=== PATIENT | male | born 1990 | race Caucasian/White ===

== ENCOUNTER 2017-11-27 01:03 | Emergency (ER) | payer SELFPAY ==
[~2017-11-27] VITALS: Ht 182.9 cm; Wt 77.1 kg
[~2017-11-27 01:03] MED LIST: CLIN300C3 PO; HYDR-34 PO; HYDR1TAB PO; NAPR-243 PO; TRM50T PO
[2017-11-27 01:10] VITALS: BP 178/121
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
[2017-11-27 03:01] LABS: BASOPHILS % (AUTO) 0 % (0-10); EOSINOPHILS # (AUTO) 0.1 10^3/uL (0.0-0.3); EOSINOPHILS % (AUTO) 1 % (0-10); HEMATOCRIT 45 % (40-54); HEMOGLOBIN 16.2 G/DL (13.3-17.7); LYMPHOCYTES # (AUTO) 2.1 X 10^3 (1.0-4.0); LYMPHOCYTES % (AUTO) 23 % (12-44); MEAN CORPUSCULAR HEMOGLOBIN 34 PG (25-34); MEAN CORPUSCULAR HGB CONC 36 G/DL (32-36); MEAN CORPUSCULAR VOLUME 94 FL (80-99); MEAN PLATELET VOLUME 10.1 FL (7.4-10.4); MONOCYTES # (AUTO) 0.6 X 10^3 (0.0-1.0); MONOCYTES % (AUTO) 6 % (0-12); NEUTROPHILS # (AUTO) 6.5 X 10^3 (1.8-7.8); NEUTROPHILS % (AUTO) 70 % (42-75); PLATELET COUNT 240 10^3/uL (130-400); RED BLOOD COUNT 4.77 10^6/uL (4.35-5.85); RED CELL DISTRIBUTION WIDTH 12.4 % (10.0-14.5); WHITE BLOOD COUNT 9.3 10^3/uL (4.3-11.0)
[2017-11-27 03:23] LABS: ALANINE AMINOTRANSFERASE 22 U/L (0-55); ALBUMIN 4.7 GM/DL (3.2-4.5); ALKALINE PHOSPHATASE 77 U/L (40-136); BILIRUBIN,TOTAL 0.5 MG/DL (0.1-1.0); BUN/CREATININE RATIO 10; CALCIUM 9.3 MG/DL (8.5-10.1); CARBON DIOXIDE 24 MMOL/L (21-32); CHLORIDE 106 MMOL/L (98-107); CREATININE SERUM 0.84 MG/DL (0.60-1.30); GFR ESTIMATED > 60; GLUCOSE 111 MG/DL (70-105); MAGNESIUM 2.5 MG/DL (1.8-2.4); POTASSIUM 4.1 MMOL/L (3.6-5.0); SODIUM 140 MMOL/L (135-145); TOTAL PROTEIN 7.6 GM/DL (6.4-8.2)
[2017-11-27] MEDS ORDERED: PRD20T PO (04:14)
--- NOTE | 2017-11-27 07:16 | Diagnostic Imaging Report ---
INDICATION: Chest pain. COMPARISON: 01/24/2010. TECHNIQUE: Single radiograph dated 11/27/2017. FINDINGS: The cardiac silhouette is within normal limits. No significant pulmonary vascular congestion. The lungs are clear. No pleural effusion. No pneumothorax. No acute osseous abnormality. IMPRESSION: No acute cardiopulmonary abnormality. Dictated by: Dictated on workstation # [id number]
== END 2017-11-27 04:20 | disposition home or self-care (01) ==
LOC: EDUNIT# 01:03 → ER 01:07
DX: M94.0 Chondrocostal junction syndrome [Tietze] (principal); F10.20 Alcohol dependence, uncomplicated; F12.90 Cannabis use, unspecified, uncomplicated; F17.210 Nicotine dependence, cigarettes, uncomplicated
CPT/HCPCS: 36415; 71046; 80053; 80320; 83735; 84484; 85025; 86141; 93005

== ENCOUNTER 2021-03-02 16:28 | Emergency (ER) | payer SELFPAY ==
[~2021-03-02] VITALS: Ht 185.4 cm; Wt 76.0 kg
[~2021-03-02 16:28] MED LIST changes: +PRD20T PO
--- NOTE | 2021-03-02 16:51 | ED Cardiac General ---
History of Present Illness General Chief Complaint: Cardiac/General Problems Stated Complaint: HEART RACING/IRREGULAR HR Source: patient Exam Limitations: no limitations History of Present Illness Date Seen by Provider: Mar 02, 2021 Time Seen by Provider: 16:50 Initial Comments This is a 30-year-old male presents to the ER via POV with complaints of intermittent chest pain, palpitations, shortness of breath over the past few weeks. States that he has these intermittent palpitations however today they began to become more frequent which made him nervous so he presented to the ER. Upon arrival he is extremely anxious, sweating, hyperventilating. States pain is in his left chest, describes as squeezing sensation, rating 3/10, constant. States he does have a history of hypertension but he is not currently treated with medications. Allergies and Home Medications Allergies Coded Allergies: No Known Drug Allergies (Unverified , 01/24/10) Home Medications Clindamycin Hcl 300 Mg Capsule, 1 EACH PO QID FOR INFECTION Prescribed by: FRANCISCO HERNANDEZ on 10/24/11 0737 Hydrocodone Bit/Acetaminophen 1 Ea Tablet, 1 TAB PO Q4H PRN Prescribed by: JYOTHI LESLIE on 06/17/10 185 Hydrocodone Bit/Acetaminophen 1 Each Tablet, 1-2 EACH PO Q4HR PRN Prescribed by: JYOTHI LESLIE on 04/07/11 190 Hydroxyzine Pamoate 50 Mg Capsule, 50 MG PO DAILY PRN for ANXIETY Prescribed by: SHANNAN BURNS on 03/02/212046 Metoprolol Tartrate 25 Mg Tablet, 25 MG PO BID Prescribed by: SHANNAN BURNS on 03/02/212046 Naproxen 500 Mg Tablet, 1 EACH PO TID PRN FOR PAIN Prescribed by: FRANCISCO HERNANDEZ on 10/24/1137 Prednisone 20 Mg Tab, 40 MG PO DAILY Prescribed by: NELLI JETER on 11/27/17 0414 Tramadol Hcl 50 Mg Tab, 50 MG PO Q4-6HOURS PRN FOR PAIN Prescribed by: FRANCISCO HERNANDEZ on 10/24/11 0737 Past Rxjjyka-Zpeeag-Fmpkbh Hx Patient Social History Alcohol Beverage of Choice: Beer, Whiskey Drug of Choice: MARIJUANA Type Used: Cigarettes 2nd Hand Smoke Exposure: Yes Recent Hopitalizations: No Past Medical History Surgeries: Yes (fasciotomy left thigh following football accident, ACL repair) Orthopedic Respiratory: No Cardiac: No Neurological: No Reproductive Disorders: No Sexually Transmitted Disease: No HIV/AIDS: No Gastrointestinal: No Musculoskeletal: No Endocrine: No Cancer: No Psychosocial: No Integumentary: No Blood Disorders: No Adverse Reaction/Blood Tranf: No Physical Exam Vital Signs Vital Signs - First Documented 03/02/21 16:34 Temp 36.4 Pulse 112 Resp 20 B/P (MAP) 188/154 (165) Pulse Ox 95 O2 Delivery Room Air Capillary Refill : Height, Weight, BMI Height: 6'0" Weight: 170lbs. oz. 77.902654xp; 23.09 BMI Method:Stated Progress/Results/Core Measures Results/Orders Lab Results Laboratory Tests Test 03/02/21 16:45 03/02/21 17:52 03/02/21 19:45 Range/Units White Blood Count 7.7 4.3-11.0 10^3/uL Red Blood Count 5.14 4.30-5.52 10^6/uL Hemoglobin 17.1 13.3-17.7 g/dL Hematocrit 48 40-54 % Mean Corpuscular Volume 93 80-99 fL Mean Corpuscular Hemoglobin 33 25-34 pg Mean Corpuscular Hemoglobin Concent 36 32-36 g/dL Red Cell Distribution Width 12.4 10.0-14.5 % Platelet Count 309 130-400 10^3/uL Mean Platelet Volume 10.5 9.0-12.2 fL Immature Granulocyte % (Auto) 0 % Neutrophils (%) (Auto) 60 42-75 % Lymphocytes (%) (Auto) 28 12-44 % Monocytes (%) (Auto) 11 0-12 % Eosinophils (%) (Auto) 0 0-10 % Basophils (%) (Auto) 1 0-10 % Neutrophils # (Auto) 4.6 1.8-7.8 10^3/uL Lymphocytes # (Auto) 2.2 1.0-4.0 10^3/uL Monocytes # (Auto) 0.9 0.0-1.0 10^3/uL Eosinophils # (Auto) 0.0 0.0-0.3 10^3/uL Basophils # (Auto) 0.0 0.0-0.1 10^3/uL Immature Granulocyte # (Auto) 0.0 0.0-0.1 10^3/uL Sodium Level 138 135-145 MMOL/L Potassium Level 3.5 L 3.6-5.0 MMOL/L Chloride Level 97 L 98-107 MMOL/L Carbon Dioxide Level 21 21-32 MMOL/L Anion Gap 20 H 5-14 MMOL/L Blood Urea Nitrogen 15 7-18 MG/DL Creatinine 1.12 0.60-1.30 MG/DL Estimat Glomerular Filtration Rate > 60 BUN/Creatinine Ratio 13 Glucose Level 105 70-105 MG/DL Calcium Level 9.9 8.5-10.1 MG/DL Corrected Calcium 9.5 8.5-10.1 MG/DL Magnesium Level 1.8 1.6-2.4 MG/DL Total Bilirubin 0.9 0.1-1.0 MG/DL Aspartate Amino Transf (AST/SGOT) 47 H 5-34 U/L Alanine Aminotransferase (ALT/SGPT) 34 0-55 U/L Alkaline Phosphatase 78 40-136 U/L Creatine Kinase MB 1.1 <6.6 NG/ML Myoglobin 72.4 10.0-92.0 NG/ML Troponin I < 0.028 < 0.028 <0.028 NG/ML Total Protein 8.0 6.4-8.2 GM/DL Albumin 4.5 3.2-4.5 GM/DL Serum Alcohol 22 H <10 MG/DL Urine Opiates Screen POSITIVE H NEGATIVE Urine Oxycodone Screen NEGATIVE NEGATIVE Urine Methadone Screen NEGATIVE NEGATIVE Urine Propoxyphene Screen NEGATIVE NEGATIVE Urine Barbiturates Screen NEGATIVE NEGATIVE Ur Tricyclic Antidepressants Screen NEGATIVE NEGATIVE Urine Phencyclidine Screen NEGATIVE NEGATIVE Urine Amphetamines Screen NEGATIVE NEGATIVE Urine Methamphetamines Screen NEGATIVE NEGATIVE Urine Benzodiazepines Screen NEGATIVE NEGATIVE Urine Cocaine Screen NEGATIVE NEGATIVE Urine Cannabinoids Screen POSITIVE H NEGATIVE Prothrombin Time 13.9 12.2-14.7 SEC INR Comment 1.0 0.8-1.4 Activated Partial Thromboplast Time 25 24-35 SEC D-Dimer < 0.27 0.00-0.49 UG/ML My Orders Orders - SHANNAN BURNS APRN Ekg Tracing (03/02/21 16:34) Cbc With Automated Diff (03/02/21 17:02) Magnesium (03/02/21 17:02) Chest 1 View, Ap/Pa Only (03/02/21 17:02) Comprehensive Metabolic Panel (03/02/21 17:02) Myoglobin Serum (03/02/21 17:02) Protime With Inr (03/02/21 17:02) Partial Thromboplastin Time (03/02/21 17:02) O2 (03/02/21 17:02) Monitor-Rhythm Ecg Trace Only (03/02/21 17:02) Ed Iv/Invasive Line Start (03/02/21 17:02) Creatine Kinase Mb (03/02/21 17:02) Fibrin Degradation Products (03/02/21 17:02) Troponin I (03/02/21 17:02) Nitroglycerin 0.4 Mg Btl 25's (Nitrostat (03/02/21 17:15) Aspirin Chewable Tablet (Baby Aspirin Ch (03/02/21 17:15) O2 (03/02/21 17:02) Lipid Panel (03/03/21 06:00) Ed Iv/Invasive Line Start (03/02/21 17:02) Morphine Injection (Morphine Injection (03/02/21 17:04) Alcohol (03/02/21 17:05) Drug Screen Stat (Urine) (03/02/21 17:05) Lorazepam Injection (Ativan Injection) (03/02/21 17:30) Lorazepam Injection (Ativan Injection) (03/02/21 17:45) Metoprolol Tartrate Injection (Lopressor (03/02/21 18:00) Ns Iv 1000 Ml (Sodium Chloride 0.9%) (03/02/21 18:30) Troponin I (03/02/21 19:45) Hydralazine Injection (Apresoline Inject (03/02/21 19:45) Medications Given in ED Current Medications Medications Dose Ordered Sig/Nevaeh Route Start Time Stop Time Status Last Admin Dose Admin Aspirin 324 mg ONCE ONCE PO 03/02/21 17:15 03/02/21 17:16 DC 03/02/21 17:12 324 MG Hydralazine HCl 10 mg ONCE ONCE IV 03/02/21 19:45 03/02/21 19:46 DC 03/02/21 19:38 10 MG Lorazepam 1 mg ONCE ONCE IVP 03/02/21 17:30 03/02/21 17:31 DC 03/02/21 17:22 1 MG Lorazepam 1 mg ONCE ONCE IVP 03/02/21 17:45 03/02/21 17:46 DC 03/02/21 17:44 1 MG Metoprolol Tartrate 5 mg ONCE ONCE IV 03/02/21 18:00 03/02/21 18:02 DC 03/02/21 18:19 5 MG Nitroglycerin 0.4 mg UD PRN SL 03/02/21 17:15 03/02/21 17:12 0.4 MG Sodium Chloride 1,000 ml @ 999 mls/hr Q1H ONCE IV 03/02/21 18:30 03/02/21 19:30 DC 03/02/21 18:41 999 MLS/HR Vital Signs/I&O 03/02/21 03/02/21 16:34 19:06 Temp 36.4 Pulse 112 Resp 20 B/P (MAP) 188/154 (165) Pulse Ox 95 99 O2 Delivery Room Air Room Air Departure Impression Primary Impression: Panic attack Additional Impression: Hypertension Disposition: 01 HOME, SELF-CARE Condition: Improved Departure-Patient Inst. Decision time for Depature: 20:47 Referrals: NO,LOCAL PHYSICIAN (PCP/Family) Primary Care Physician Patient Instructions: High Blood Pressure (DC), Panic Disorder Add. Discharge Instructions: Plan: 1. Establish with a primary care provider to follow your blood pressure. 2. Take Metoprolol 25mg by mouth twice a day for your blood pressure. 3. Take Hydroxyzine daily as needed for anxiety. 4. Return to ER if you develop any new, concerning, or worsening symptoms. All discharge instructions reviewed with patient and/or family. Voiced understanding. Scripts Hydroxyzine Pamoate (Vistaril) 50 Mg Capsule 50 MG PO DAILY PRN for ANXIETY, #30 CAP 0 Refills Prov: SHANNAN BURNS ARMORED CABLE MACHINE OPERATOR 03/02/21 Metoprolol Tartrate (Metoprolol Tartrate) 25 Mg Tablet 25 MG PO BID for 14 Days, #28 TAB 0 Refills Prov: SHANNAN BURNS ARMORED CABLE MACHINE OPERATOR 03/02/21 Copy Copies To 1: [facility]/SHANNAN GEORGE ARMORED CABLE MACHINE OPERATOR Mar 02, 2021 16:50
[2021-03-02] MEDS ORDERED: morphine INJ 10 MG/ML 1ML (SYR OR VIAL) IVP STA (17:04)
[2021-03-02] MEDS ORDERED: ASPIRIN 81 MG CHEW (CHILDREN'S ASA) PO ONE (17:15)
[2021-03-02] MEDS ORDERED: NITROGLYCERIN 0.4 MG SL TABS BTL 25'S SL PRN (17:15)
[2021-03-02 17:25] LABS: BASOPHILS % (AUTO) 1 % (0-10); EOSINOPHILS % (AUTO) 0 % (0-10); HEMATOCRIT 48 % (40-54); HEMOGLOBIN 17.1 g/dL (13.3-17.7); LYMPHOCYTES # (AUTO) 2.2 10^3/uL (1.0-4.0); LYMPHOCYTES % (AUTO) 28 % (12-44); MEAN CORPUSCULAR HEMOGLOBIN 33 pg (25-34); MEAN CORPUSCULAR HGB CONC 36 g/dL (32-36); MEAN CORPUSCULAR VOLUME 93 fL (80-99); MEAN PLATELET VOLUME 10.5 fL (9.0-12.2); MONOCYTES # (AUTO) 0.9 10^3/uL (0.0-1.0); MONOCYTES % (AUTO) 11 % (0-12); NEUTROPHILS # (AUTO) 4.6 10^3/uL (1.8-7.8); NEUTROPHILS % (AUTO) 60 % (42-75); PLATELET COUNT 309 10^3/uL (130-400); WHITE BLOOD COUNT 7.7 10^3/uL (4.3-11.0)
[2021-03-02] MEDS ORDERED: LORazepam INJ 2 MG/ML (ATIVAN) VIAL IVP ONE ×3 (17:30→17:45)
[2021-03-02 17:37] LABS: ALBUMIN 4.5 GM/DL (3.2-4.5); CHLORIDE 97 MMOL/L (98-107); POTASSIUM 3.5 MMOL/L (3.6-5.0); SODIUM 138 MMOL/L (135-145)
[2021-03-02 17:38] LABS: CALCIUM 9.9 MG/DL (8.5-10.1)
[2021-03-02 17:39] LABS: GLUCOSE 105 MG/DL (70-105)
[2021-03-02 17:40] LABS: CARBON DIOXIDE 21 MMOL/L (21-32)
[2021-03-02 17:41] LABS: BILIRUBIN,TOTAL 0.9 MG/DL (0.1-1.0)
[2021-03-02 17:43] LABS: ALKALINE PHOSPHATASE 78 U/L (40-136); CREATININE SERUM 1.12 MG/DL (0.60-1.30); GFR ESTIMATED > 60
[2021-03-02 17:44] LABS: BUN/CREATININE RATIO 13
[2021-03-02 17:46] LABS: ALANINE AMINOTRANSFERASE 34 U/L (0-55); MAGNESIUM 1.8 MG/DL (1.6-2.4)
--- NOTE | 2021-03-02 17:49 | Diagnostic Imaging Report ---
INDICATION: Chest pain. COMPARISON STUDY: Chest from 11/27/2017. FINDINGS: AP view of the chest demonstrates the lungs to be clear. The heart, mediastinum, pulmonary vascularity and visualized bony thorax are normal. IMPRESSION: Negative chest. Dictated by: Dictated on workstation # [id number]
[2021-03-02 17:54] LABS: CREATINE KINASE MB 1.1 NG/ML (<6.6)
[2021-03-02] MEDS ORDERED: meTOprolol 5 MG/5 ML (LOPRESSOR) VIAL IV ONE (18:00)
[2021-03-02 18:12] LABS: AMPHETAMINE SCREEN, URINE NEGATIVE (NEGATIVE); BARBITURATE SCREEN URINE NEGATIVE (NEGATIVE); BENZODIAZEPINES SCREEN URINE NEGATIVE (NEGATIVE); CANNABINOID SCREEN, URINE POSITIVE (NEGATIVE); COCAINE SCREEN URINE NEGATIVE (NEGATIVE); METHADONE STAT NEGATIVE (NEGATIVE); METHAMPHETAMINE SCREEN URINE S NEGATIVE (NEGATIVE); OPIATE SCREEN URINE POSITIVE (NEGATIVE); OXYCODONE STAT NEGATIVE (NEGATIVE); PROPOXYPHENE STAT NEGATIVE (NEGATIVE); TRICYCLIC ANTIDEPRESSANTS SCRE NEGATIVE (NEGATIVE)
[2021-03-02] MEDS ORDERED: NS IV 1000 ML 1,000 ML IV ONE (18:30)
[2021-03-02] MEDS ORDERED: hydrALAZINE (APESOLINE) 20 MG/ML VIAL IV ONE (19:45)
[2021-03-02 20:29] LABS: PROTHROMBIN TIME PATIENT 13.9 SEC (12.2-14.7)
[2021-03-02] MEDS ORDERED: HYDR50CA PO (20:47)
[2021-03-02] MEDS ORDERED: METO-333 PO (20:47)
[2021-03-02] MEDS ORDERED: meTOprolol TARTRATE 25 MG (LOPRESSOR) TABLET PO ONE (21:00)
[2021-03-02 21:37] VITALS: BP 146/94
== END 2021-03-02 21:37 | disposition home or self-care (01) ==
LOC: EDUNIT# 16:28 → ER 16:29
DX: F41.0 Panic disorder [episodic paroxysmal anxiety] (principal); I10 Essential (primary) hypertension; Z77.22 Contact with and (suspected) exposure to environmental tobacco smoke (acute) (chronic); Z79.52 Long term (current) use of systemic steroids
CPT/HCPCS: 71045; 80053; 80306; 82553; 83735; 83874; 84484; 85025; 85379; 85610; 85730; 93041; G0480; 36415; 80320; 93005

== ENCOUNTER 2021-06-10 23:23 | Emergency (ER) | payer SELFPAY ==
[~2021-06-10] VITALS: Ht 185 cm; Wt 76.0 kg
[~2021-06-10 23:23] MED LIST changes: +HYDR50CA PO; +METO-333 PO
[2021-06-11] MEDS: AMOXICILLIN 500 MG (POLYMOX) CAP PO ONE (00:05)
[2021-06-11] MEDS: LIDOCAINE 1% INJ 20 ML 20 ML VIAL INJ ONE (01:30)
[2021-06-11 01:44] VITALS: BP 135/78
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
== END 2021-06-11 01:50 | disposition home or self-care (01) ==
LOC: EDUNIT# 23:23 → ER 23:24
DX: S01.511A Laceration without foreign body of lip, initial encounter (principal); F17.210 Nicotine dependence, cigarettes, uncomplicated; W22.8XXA Striking against or struck by other objects, initial encounter
CPT/HCPCS: 99284

== ENCOUNTER 2021-11-27 18:23 | Observation (INO) | payer SELFPAY ==
[~2021-11-27] VITALS: Ht 185 cm; Wt 77.0 kg
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
[2021-11-27] MEDS ORDERED: LACTATED RINGERS 1,000 ML IV STA (18:42)
[2021-11-27] MEDS ORDERED: FAMOTIDINE 20MG/2ML IV (PEPCID) IV STA (18:42)
[2021-11-27] MEDS ORDERED: PANTOPRAZOLE 40 MG (PROTONIX) VIAL IV ONE (18:45)
[2021-11-27 18:51] LABS: BASOPHILS # (AUTO) 0.1 10^3/uL (0.0-0.1); BASOPHILS % (AUTO) 0 % (0-10); EOSINOPHILS % (AUTO) 0 % (0-10); HEMATOCRIT 32 % (40-54); HEMOGLOBIN 10.7 g/dL (13.3-17.7); LYMPHOCYTES # (AUTO) 2.6 10^3/uL (1.0-4.0); LYMPHOCYTES % (AUTO) 14 % (12-44); MEAN CORPUSCULAR HEMOGLOBIN 33 pg (25-34); MEAN CORPUSCULAR HGB CONC 34 g/dL (32-36); MEAN CORPUSCULAR VOLUME 98 fL (80-99); MEAN PLATELET VOLUME 10.3 fL (9.0-12.2); MONOCYTES # (AUTO) 1.5 10^3/uL (0.0-1.0); MONOCYTES % (AUTO) 8 % (0-12); NEUTROPHILS # (AUTO) 13.9 10^3/uL (1.8-7.8); NEUTROPHILS % (AUTO) 76 % (42-75); PLATELET COUNT 295 10^3/uL (130-400); WHITE BLOOD COUNT 18.3 10^3/uL (4.3-11.0)
[2021-11-27 18:57] LABS: ALBUMIN 3.9 GM/DL (3.2-4.5); POTASSIUM 3.9 MMOL/L (3.6-5.0)
[2021-11-27 18:58] LABS: CALCIUM 9.5 MG/DL (8.5-10.1)
[2021-11-27 18:59] LABS: TOTAL PROTEIN 6.3 GM/DL (6.4-8.2)
[2021-11-27] MEDS ORDERED: ONDANSETRON 4 MG/2 ML (SDV) Z0FRAN IVP ONE (19:00)
[2021-11-27 19:01] LABS: BILIRUBIN,TOTAL 0.4 MG/DL (0.1-1.0)
[2021-11-27 19:03] LABS: CREATININE SERUM 1.07 MG/DL (0.60-1.30)
[2021-11-27 19:06] LABS: MAGNESIUM 1.6 MG/DL (1.6-2.4)
[2021-11-27 19:14] LABS: LYMPHOCYTES % (MANUAL) 13 %; MONOCYTES % (MANUAL) 5 %; NEUTROPHILS % (MANUAL) 82 %; RBC MORPH NORMAL
[2021-11-27] MEDS ORDERED: SUCRALFATE 1 GM (CARAFATE) TAB PO ONE (19:30)
[2021-11-27] MEDS ORDERED: PANTOPRAZOLE INJECTION 200 MG in NS (IVPB) 100 ML IV SCH (20:30)
[2021-11-27 21:20] VITALS: BP 136/87
[2021-11-27] MEDS ORDERED: 1/2 NS IV SOLUTION 1,000 ML IV PRN (22:45)
[2021-11-27] MEDS ORDERED: D5 1/2 NS 1000 ML IV SOLUTION 1,000 ML IV PRN (22:45)
[2021-11-27] MEDS ORDERED: SENNA W/DOCUSATE (SENOKOT S) TABLET PO PRN (22:45)
[2021-11-27] MEDS ORDERED: ONDANSETRON 4 MG/2 ML (SDV) Z0FRAN IV PRN (22:45)
[2021-11-27] MEDS ORDERED: LORazepam INJ 2 MG/ML (ATIVAN) VIAL IM/IV PRN (22:45)
[2021-11-27] MEDS ORDERED: LORazepam 1 MG (ATIVAN) TAB PO PRN (22:45)
[2021-11-27] MEDS ORDERED: ANTACID SUSP 30 ML UDC (MYLANTA) PO PRN (22:45)
[2021-11-27] MEDS ORDERED: D5 1/2 NS W/KCL 20 MEQ/L 1,000 ML IV SCH (22:45)
[2021-11-27] MEDS ORDERED: ONDANSETRON 4 MG (ZOFRAN) ORAL DISSOLVE TAB SL PRN (22:45)
[2021-11-27 23:17] LABS: HEMOGLOBIN 9.1 g/dL (13.3-17.7)
[2021-11-27] MEDS ORDERED: LACTATED RINGERS 1,000 ML IV ONE (23:28)
[2021-11-27] MEDS: LACTATED RINGERS 1,000 ML IV SCH (23:55)
[2021-11-28] VITALS (9 sets, daily range): BP systolic 111–142; BP diastolic 56–91
[2021-11-28] MEDS: LORazepam INJ 2 MG/ML (ATIVAN) VIAL IV PRN ×2 (00:06→17:24)
[2021-11-28 05:49] LABS: BASOPHILS % (AUTO) 0 % (0-10); EOSINOPHILS # (AUTO) 0.1 10^3/uL (0.0-0.3); EOSINOPHILS % (AUTO) 1 % (0-10); HEMATOCRIT 22 % (40-54); HEMOGLOBIN 7.4 g/dL (13.3-17.7); LYMPHOCYTES % (AUTO) 27 % (12-44); MEAN CORPUSCULAR HEMOGLOBIN 34 pg (25-34); MEAN CORPUSCULAR HGB CONC 34 g/dL (32-36); MEAN CORPUSCULAR VOLUME 100 fL (80-99); MEAN PLATELET VOLUME 10.4 fL (9.0-12.2); MONOCYTES # (AUTO) 0.8 10^3/uL (0.0-1.0); MONOCYTES % (AUTO) 10 % (0-12); NEUTROPHILS # (AUTO) 4.7 10^3/uL (1.8-7.8); NEUTROPHILS % (AUTO) 61 % (42-75); PLATELET COUNT 169 10^3/uL (130-400); WHITE BLOOD COUNT 7.6 10^3/uL (4.3-11.0)
[2021-11-28 06:06] LABS: CALCIUM 8.5 MG/DL (8.5-10.1)
[2021-11-28 06:10] LABS: CREATININE SERUM 0.74 MG/DL (0.60-1.30)
[2021-11-28] MEDS: LACTATED RINGERS 1,000 ML IV SCH (06:44)
--- NOTE | 2021-11-28 07:54 | History & Physical-Surgical ---
ANAKRYSTALTAYLOR 11/28/21 0754: History of Present Illness History of Present Illness Reason for visit/HPI Luis Carlos Yung is a 31y/o M w/ a PMH of HTN, smoking, and alcohol use who is being seen due to upper GI bleed. Pt reports that 2 days ago he awoke with nausea and vomiting in the morning. States that the vomit at that time had bright red blood in it. That was the only episode of vomiting that day. Yesterday morning he woke up with epigastric and RUQ pain that was sharp and radiated to his chest. Reports that he had 2 episodes of vomiting w/ coffee ground appearance and 2 episodes of melena.It was due to the appearance of his vomit and stools that he decided to go into the ER yesterday. Today her reports that the pain is in the same areas as yesterday but is maybe slightly improved. Rates the pain as 6/10 and describes it as steady. Does radiate to right side of abdomen. Complaining of nausea but not having any vomiting. No recent BM. Says that he felt like he was having palpitations last night but they resolved after he was given ativan. Reports that he drinks about 4-5 beers every night. Date of Admission Nov 27, 2021 at 20:31 Date Seen by a Provider: Nov 28, 2021 Time Seen by a Provider: 07:14 I consulted on this patient on 11/28/21 07:48 Attending Physician Aleida Bah DO Admitting Physician No,Local Physician Consult Allergies and Home Medications Allergies Coded Allergies: No Known Drug Allergies (Unverified , 01/24/10) Patient Home Medication List Home Medication List Reviewed: Yes Past Hufzlqi-Wbuqnp-Jpddza Hx Patient Social History Tobacco Use?: Yes Tobacco type used: Cigarettes Smoking Status: Current Everyday Smoker Smokeless Tobacco Frequency: Never a User Use of E-Cig and/or Vaping dev: No Use of E-Cig and/or Vaping River: Never a User Substance use?: No Substance type: Marijuana Substance frequency: Once in a while Alcohol Use?: Yes Alcohol type: Beer Alcohol Frequency: Couple times a week Pt feels they are or have been: No Immunizations Up To Date Tetanus Booster (TDap): Less Than 5 Years Seasonal Allergies Seasonal Allergies: No Current Status Advance Directives: No Communicates: Verbally Primary Language: Montserratian Preferred Spoken Language: [place]serratian Is interpretation needed?: No Implanted or Applied Medical D: None Past Medical History Surgeries: Orthopedic Sexually Transmitted Disease: No HIV/AIDS: No Blood Disorders: No Adverse Reaction/Blood Tranf: No Family Medical History Reviewed Nursing Family Hx No Pertinent Family Hx Review of Systems Constitutional: No chills, No fever EENTM: No blurred vision, No double vision, No eye pain Respiratory: No cough, No dyspnea on exertion Cardiovascular: chest pain, palpitations Gastrointestinal: abdominal pain, nausea; No vomiting Musculoskeletal: No muscle pain, No muscle stiffness; muscle weakness Skin: No change in color, No change in hair/nails Psychiatric/Neurological: Denies Headache, Denies Numbness, Denies Paresthesia Physical Exam Vital Signs Vital Signs - First Documented 11/27/21 11/27/21 18:26 21:09 Temp 36.6 Pulse 137 Resp 22 B/P (MAP) 145/73 (97) Pulse Ox 99 O2 Delivery Room Air Capillary Refill : Less Than 3 Seconds Height, Weight, BMI Height: 6'0" Weight: 170lbs. oz. [id number]; 22.49 BMI Method:Stated General Appearance: No Apparent Distress, WD/WN HEENT: PERRL/EOMI; No Photophobia Neck: Non Tender, Supple Respiratory: Lungs Clear, Normal Breath Sounds, No Accessory Muscle Use, No Respiratory Distress, Other (chest tender to palpitation, probable costochondritis ) Cardiovascular: No Murmur, Normal Peripheral Pulses, Tachycardia Gastrointestinal: Soft, Tenderness (epigastric region and RLQ) Back: No CVA Tenderness, No Vertebral Tenderness Extremity: Normal Capillary Refill, Normal Inspection, Non Tender, No Calf Tenderness, No Pedal Edema Neurologic/Psychiatric: Alert, Oriented x3, Normal Mood/Affect Skin: Normal Color, Warm/Dry, Tattoos/Piercings Lymphatic: No Adenopathy Data Review Labs Laboratory Tests 11/27/21 18:40: White Blood Count 18.3H, Red Blood Count 3.21L, Hemoglobin 10.7L, Hematocrit 32L , Mean Corpuscular Volume 98, Mean Corpuscular Hemoglobin 33, Mean Corpuscular Hemoglobin Concent 34, Red Cell Distribution Width 14.2, Platelet Count 295, Mean Platelet Volume 10.3, Immature Granulocyte % (Auto) 1, Neutrophils (%) (Auto) 76H, Lymphocytes (%) (Auto) 14, Monocytes (%) (Auto) 8, Eosinophils (%) (Auto) 0, Basophils (%) (Auto) 0, Neutrophils # (Auto) 13.9H, Lymphocytes # (Auto) 2.6, Monocytes # (Auto) 1.5H, Eosinophils # (Auto) 0.0, Basophils # (Auto) 0.1, Immature Granulocyte # (Auto) 0.2H, Neutrophils % (Manual) 82, Lymphocytes % (Manual) 13, Monocytes % (Manual) 5, Blood Morphology Comment NORMAL, Sodium Level 137, Potassium Level 3.9, Chloride Level 103, Carbon Dioxide Level 20L, Anion Gap 14, Blood Urea Nitrogen 35H, Creatinine 1.07, Estimat Glomerular Filtration Rate 95, BUN/Creatinine Ratio 33, Glucose Level 124H, Calcium Level 9.5, Corrected Calcium 9.6, Magnesium Level 1.6, Total Bilirubin 0.4, Aspartate Amino Transf (AST/SGOT) 20, Alanine Aminotransferase (ALT/SGPT) 18, Alkaline Phosphatase 53, Total Protein 6.3L, Albumin 3.9, Lipase 37, Serum Alcohol 30H 11/27/21 23:05: Hemoglobin 9.1L, Hematocrit 27L 11/28/21 05:37: White Blood Count 7.6, Red Blood Count 2.21L, Hemoglobin 7.4L, Hematocrit 22L, Mean Corpuscular Volume 100H, Mean Corpuscular Hemoglobin 34, Mean Corpuscular Hemoglobin Concent 34, Red Cell Distribution Width 14.5, Platelet Count 169, Mean Platelet Volume 10.4, Immature Granulocyte % (Auto) 1, Neutrophils (%) (Auto) 61, Lymphocytes (%) (Auto) 27, Monocytes (%) (Auto) 10, Eosinophils (%) (Auto) 1, Basophils (%) (Auto) 0, Neutrophils # (Auto) 4.7, Lymphocytes # (Auto) 2.0, Monocytes # (Auto) 0.8, Eosinophils # (Auto) 0.1, Basophils # (Auto) 0.0, Immature Granulocyte # (Auto) 0.1, Sodium Level 135, Potassium Level 4.0, Chloride Level 104, Carbon Dioxide Level 20L, Anion Gap 11, Blood Urea Nitrogen 23H, Creatinine 0.74, Estimat Glomerular Filtration Rate 123, BUN/Creatinine Ratio 31, Glucose Level 89, Calcium Level 8.5 Assessment/Plan Assessment/Plan Assessment/Plan Upper GI bleed Coffee ground emesis Melena Nausea Alcohol abuse anemia Costochondritis Plan Continue NPO diet, pantoprazole, and Zofran. Monitor for resumption of vomiting or melena Monitor Hgb in case of need for transfusion, blood typing has been done Continue alcohol withdrawal protocol Pt will likely need EGD Continue IV fluids ALEIDA BAH DO 11/28/211999: History of Present Illness History of Present Illness Reason for visit/HPI Chief complaint upper GI bleed hematemesis Patient 31-year-old male with significant alcohol use. Patient 2 days ago began having nausea and vomiting. Eventually began throwing up bright red blood. He states that he has started having pain in the epigastric area that was sharp in nature. This radiated towards his chest. He also began having some more coffee-ground appearance emesis and dark stools. He continued to have pain that he rated a 6 out of 10 and was pretty constant. Patient states that nothing was really making it better. He still having nausea but not had any further emesis. Drinking seem to make things worse. Patient had hemoglobin drop. Patient drinks approximately 4-5 beers per day. Patient states that he has cut back and is hoping to quit soon. Denies any fever sweats chills shortness of breath or chest pain at this time Allergies and Home Medications Allergies Coded Allergies: No Known Drug Allergies (Unverified , 01/24/10) Patient Home Medication List Home Medication List Reviewed: Yes Past Ginsokj-Dgrjda-Hhwafs Hx Patient Social History Alcohol Frequency: Daily Past Medical History Surgeries: Orthopedic Family Medical History Reviewed Nursing Family Hx No Pertinent Family Hx Review of Systems Constitutional: No chills, No fever EENTM: No blurred vision, No double vision, No eye pain Respiratory: No cough, No dyspnea on exertion Cardiovascular: No chest pain, No palpitations Gastrointestinal: abdominal pain, hematemesis, nausea, vomiting Genitourinary: No decreased output, No discharge Musculoskeletal: No back pain, No muscle pain, No muscle stiffness, No muscle weakness Skin: No change in color, No change in hair/nails Psychiatric/Neurological: Denies Headache, Denies Paresthesia All Other Systems Reviewed Negative Unless Noted: Yes (Negative excepted noted.) Physical Exam General Appearance: No Apparent Distress, WD/WN HEENT: PERRL/EOMI, Normal ENT Inspection Neck: Non Tender, Supple Respiratory: Chest Non Tender, No Accessory Muscle Use, No Respiratory Distress, Other (chest wall tender to palpitation) Cardiovascular: No JVD, Tachycardia Gastrointestinal: Soft, Tenderness (epigastric region ) Rectal: Deferred Back: No CVA Tenderness, No Vertebral Tenderness Extremity: Normal Capillary Refill, Normal Inspection, Non Tender, No Calf Tenderness Neurologic/Psychiatric: Alert, Oriented x3, Normal Mood/Affect Skin: Normal Color, Warm/Dry, Tattoos/Piercings Lymphatic: No Adenopathy Assessment/Plan Assessment/Plan Admission Diagonsis Upper GI bleed Coffee ground emesis Melena Nausea Alcohol abuse anemia Admission Status: Inpatient Order (span 2 midnights) Reason for Inpatient Admission: Patient here for at least 2 midnights for close monitoring, procedure and high risk for continued bleeding needs monitoring Assessment/Plan Upper GI bleed-hematemesis/Coffee ground emesis Melena Nausea Alcohol abuse anemia Plan Continue NPO diet, pantoprazole, and Zofran. Monitor for resumption of vomiting or melena Monitor Hgb in case of need for transfusion, blood typing has been done Continue alcohol withdrawal protocol Discussed risks and benefits and patient to go for EGD today Continue IV fluids Supervisory-Addendum Brief Verification & Attestation Participated in pt care: history, MDM, physical Personally performed: exam, history, MDM, supervision of care Care discussed with: Medical Student Procedures: n/a Results interpretation: Verified all documentation Verification and Attestation of Medical Student E/M Service A medical student performed and documented this service in my presence. I reviewed and verified all information documented by the medical student and made modifications to such information, when appropriate. I personally performed the physical exam and medical decision making. Aleida Bah, Nov 28, 2021,08:04 TAYLOR MULTANI Nov 28, 2021 07:54 ALEIDA BAH DO Nov 28, 2021 20:00
[2021-11-28] MEDS ORDERED: MIDAZOLAM 2 MG/2 ML (VERSED) VIAL ONE (09:36)
[2021-11-28] MEDS ORDERED: PROPOFOL INJECTION 50 ML IV ONE (09:36)
[2021-11-28] MEDS ORDERED: LACTATED RINGERS 1,000 ML IV PRN (09:45)
--- NOTE | 2021-11-28 10:09 | Anesthesia-General Post-Op ---
MAC Patient Condition Mental Status/LOC: Same as Preop Cardiovascular: Satisfactory Nausea/Vomiting: Absent Respiratory: Satisfactory Pain: Controlled Complications: Absent Post Op Complications Complications None Follow Up Care/Instructions Patient Instructions None needed. Anesthesiology Discharge Order Discharge Order Patient is doing well, no complaints, stable vital signs, no apparent adverse anesthesia problems. No complications reported per nursing. OMID ALMONTE CRNA Nov 28, 2021 10:09
[2021-11-28] MEDS: THIAMINE INJECTION 100 MG, FOLIC ACID INJECTION 1 MG, MAGNESIUM SULFATE 2 GM, VITAMIN M... IV SCH ×5 (10:23)
[2021-11-28] MEDS ORDERED: NICOTINE 21 MG (NICODERM) PATCH TD ONE (10:30)
[2021-11-28] MEDS ORDERED: LACTATED RINGERS 1,000 ML IV STA (10:58)
[2021-11-28] MEDS ORDERED: HURRICAINE EXT TUBE (BENZOCAINE) XX PRN (11:00)
[2021-11-28] MEDS: fentaNYL INJ 100 MCG/2 ML AMP IVP PRN ×4 (15:27→21:55)
[2021-11-28 19:21] LABS: HEMOGLOBIN 8.1 g/dL (13.3-17.7)
[2021-11-28] MEDS: PANTOPRAZOLE 40 MG (PROTONIX) VIAL IV SCH (19:58)
--- NOTE | 2021-11-28 21:06 | OPERATIVE REPORT ---
DATE OF SERVICE: 11/28/2021 PREOPERATIVE DIAGNOSIS: Upper gastrointestinal bleed, hematemesis. POSTOPERATIVE DIAGNOSIS: 1. Esophageal linear ulceration with clot. 2. Hiatal hernia. PROCEDURE: EGD. SURGEON: Aleida Ferrell DO ANESTHESIA: Per CONTAINER PACKER OPERATOR. ESTIMATED BLOOD LOSS: None. COMPLICATIONS: None. INDICATIONS: The patient is a 31-year-old male who has been having upper GI bleed, hematemesis. He has a drop in hemoglobin and was discussed risks and benefits of having EGD performed. He understands risks and benefits for further evaluation with EGD and wishes to proceed. Consent was signed in the chart. DESCRIPTION OF PROCEDURE: The patient was taken to the endoscopy suite, placed in left lateral recumbent position. Timeout was performed. Scope was inserted in mouth, down the esophagus, which distal portion of esophagus, linear ulceration with a large clot was present. No active bleeding at this time. Scope was inserted into the stomach and into the duodenum without difficulty. There were no polyps, masses or ulcerations within the duodenum. Scope was slowly retracted back into the stomach where it was further insufflated. No polyps, masses or ulcerations. Scope was retroflexed noting no other pathology. Except for a hiatal hernia, scope was then returned to its normal position, slowly withdrawn to distal esophagus again noting a linear ulceration, no active bleeding at this time and a large clot present. Scope was then slowly retracted back to completely remove noting no other pathology. The patient tolerated procedure well without any complications, taken to recovery room in stable condition. RECOMMENDATIONS: The patient to continue to be n.p.o. at this time. We will continue on Protonix and once hemoglobin stabilizes, we will start on clear liquids. The patient may need repeat EGD as well if continued to have significant drop in hemoglobin. Job ID: [id number] DocumentID: [id number] Dictated Date: 11/28/2021 20:08:01 Storm Door Maker Date: 11/28/2021 21:05:39 Dictated By: ALEIDA FERRELL DO
[2021-11-28] MEDS: D5 1/2 NS W/KCL 20 MEQ/L 1,000 ML IV SCH (21:45)
[2021-11-29] MEDS: fentaNYL INJ 100 MCG/2 ML AMP IVP PRN ×6 (00:13→22:59)
[2021-11-29 04:00] VITALS: BP 191/82
[2021-11-29] MEDS: D5 1/2 NS W/KCL 20 MEQ/L 1,000 ML IV SCH ×5 (05:37→20:13)
[2021-11-29 08:00] VITALS: BP 145/80
--- NOTE | 2021-11-29 08:17 | Progress Note - Surgery ---
TAYLOR MULTANI 11/29/21 0817: Subjective Date Seen by a Provider: Nov 29, 2021 Time Seen by a Provider: 07:18 Subjective/Events-last exam Pt reports that he is having an occasional sharp abdominal pain this morning in his mid abdomen. Rates the pain as a 4/10. States that he did have a melenic sto ol last night. Denies any nausea or vomiting. Endorses having night sweats last night but no fever or chills. When asked he denied having any other concerns. Review of Systems General: No Chills; Night Sweats; No Other (fever) HEENT: No Head Aches, No Visual Changes Pulmonary: No Dyspnea, No Cough Cardiovascular: No: Chest Pain, Palpitations Gastrointestinal: Abdominal Pain, Melena; No: Nausea, Vomiting Genitourinary: No Dysuria, No Frequency Musculoskeletal: No: shoulder pain, back pain Neurological: No: Weakness, Numbness, Change in speech, Confusion Objective Exam Vital Signs Date Time Temp Pulse Resp B/P (MAP) Pulse Ox O2 Delivery O2 Flow Rate FiO2 11/29/21 06:30 36.4 11/29/21 04:05 36.4 11/29/21 04:00 36.4 99 19 191/82 (118) 96 Room Air 11/29/21 00:43 36.0 11/29/21 00:13 36.0 11/28/21 23:49 36.0 94 18 142/85 (104) 98 Room Air 11/28/21 22:25 37.8 11/28/21 21:55 37.8 11/28/21 20:28 37.8 11/28/21 19:50 98 Room Air 11/28/21 19:43 37.8 104 18 137/91 (106) 98 Room Air 11/28/21 16:00 37.4 98 18 111/68 (82) 98 Room Air 11/28/21 12:00 36.6 85 18 138/82 (100) 97 Room Air 11/28/21 10:05 103 22 100 Room Air 11/28/21 10:00 105 22 100 OxyMask 10 I & O 11/29/21 07:00 Intake Total 700 ml Balance 700 ml Capillary Refill : Less Than 3 Seconds General Appearance: No Apparent Distress, WD/WN HEENT: PERRL/EOMI; No Photophobia Neck: Non Tender, Supple Respiratory: Chest Non Tender, No Accessory Muscle Use, No Respiratory Distress, Other (chest wall tender to palpitation) Cardiovascular: Regular Rate, Rhythm, No JVD, No Murmur, Normal Peripheral Pulses, Tachycardia Peripheral Pulses: 2+ Radial Pulses (R), 2+ Radial Pulses (L) Gastrointestinal: soft, no organomegaly, no pulsatile mass, tenderness (epigastric and RUQ area mild) Extremity: Normal Capillary Refill, Normal Inspection, Non Tender, No Calf Tenderness, No Pedal Edema Neurologic/Psychiatric: Alert, Oriented x3, Normal Mood/Affect; No Disoriented Skin: Normal Color, Warm/Dry, Tattoos/Piercings Lymphatic: No Adenopathy Results Lab Laboratory Tests 11/28/21 09:00: SARS-CoV-2 RNA (RT-PCR) Not Detected 11/28/21 09:02: SARS-CoV-2 RNA (RT-PCR) , Influenza Type A (RT-PCR) Not Detected, Influenza Type B (RT-PCR) Not Detected 11/28/21 19:15: Hemoglobin 8.1L, Hematocrit 24L Assessment/Plan Assessment/Plan Assessment/Plan Upper GI bleed-hematemesis/Coffee ground emesis Melena Nausea Alcohol abuse anemia Plan EGD done yesterday showed a clotted esophageal ulcer Continue pantoprazole, and Zofran. Monitor for resumption of vomiting or melena Repeat CBC and BMP this morning, Monitor Hgb in case of need for transfusion, blood typing has been done NPO, can be started on clear liquid diet if Hgb is stable Continue alcohol withdrawal protocol Continue IV fluids ALEIDA FERRELL DO 11/29/21 1528: Subjective Subjective/Events-last exam Patient with minimal epigastric abdominal pain. He has not had any more hematemesis. His hemoglobin had very minimal drop. Patient continues on Protonix. Currently n.p.o. Denies any new complaints. Denies nausea vomiting fever sweats chills shortness of breath or chest pain. Did have melanotic stool. Objective Exam General Appearance: No Apparent Distress, WD/WN HEENT: PERRL/EOMI, Normal ENT Inspection Neck: Non Tender, Supple Respiratory: No Accessory Muscle Use, No Respiratory Distress Cardiovascular: Regular Rate, Rhythm, No JVD Gastrointestinal: soft, tenderness (epigastric minimal) Extremity: Normal Inspection, Non Tender, No Calf Tenderness Neurologic/Psychiatric: Alert, Oriented x3, Normal Mood/Affect Skin: Normal Color, Warm/Dry Lymphatic: No Adenopathy Assessment/Plan Assessment/Plan Assessment/Plan Upper GI bleed-hematemesis/Coffee ground emesis linear eophageal ulceration Melena Nausea Alcohol abuse anemia Plan EGD done yesterday showed a clotted esophageal linear ulcer no active bleeding Continue pantoprazole, and Zofran. Monitor for resumption of vomiting or melena Repeat CBC and BMP this morning, Monitor Hgb in case of need for transfusion, blood typing has been done NPO, will start on clears. Continue alcohol withdrawal protocol Continue IV fluids Supervisory-Addendum Brief Verification & Attestation Participated in pt care: history, MDM, physical Personally performed: exam, history, MDM, supervision of care Care discussed with: Medical Student Procedures: n/a Results interpretation: Verified all documentation Verification and Attestation of Medical Student E/M Service A medical student performed and documented this service in my presence. I re viewed and verified all information documented by the medical student and made modifications to such information, when appropriate. I personally performed the physical exam and medical decision making. Aleida Ferrell, Nov 29, 2021,15:27 TAYLOR MULTANI Nov 29, 2021 08:17 ALEIDA FERRELL DO Nov 29, 2021 15:28
[2021-11-29] MEDS: NICOTINE 21 MG (NICODERM) PATCH TD SCH (09:58)
[2021-11-29] MEDS: THIAMINE INJECTION 100 MG, FOLIC ACID INJECTION 1 MG, MAGNESIUM SULFATE 2 GM, VITAMIN M... IV SCH ×5 (09:58)
[2021-11-29] MEDS: PANTOPRAZOLE 40 MG (PROTONIX) VIAL IV SCH ×2 (09:58→20:44)
[2021-11-29 10:04] LABS: HEMATOCRIT 23 % (40-54); HEMOGLOBIN 7.6 g/dL (13.3-17.7); MEAN CORPUSCULAR HEMOGLOBIN 34 pg (25-34); MEAN CORPUSCULAR HGB CONC 33 g/dL (32-36); MEAN CORPUSCULAR VOLUME 101 fL (80-99); MEAN PLATELET VOLUME 10.3 fL (9.0-12.2); PLATELET COUNT 186 10^3/uL (130-400); WHITE BLOOD COUNT 5.9 10^3/uL (4.3-11.0)
[2021-11-29 10:18] LABS: POTASSIUM 4.3 MMOL/L (3.6-5.0)
[2021-11-29 10:19] LABS: CALCIUM 8.8 MG/DL (8.5-10.1)
[2021-11-29 10:24] LABS: CREATININE SERUM 0.81 MG/DL (0.60-1.30)
[2021-11-29 12:00] VITALS: BP 123/71
[2021-11-29 16:00] VITALS: BP 131/65
[2021-11-29 19:37] VITALS: BP 157/84
[2021-11-30] VITALS (7 sets, daily range): BP systolic 121–162; BP diastolic 50–95
[2021-11-30] MEDS: fentaNYL INJ 100 MCG/2 ML AMP IVP PRN ×7 (01:30→22:50)
[2021-11-30] MEDS: D5 1/2 NS W/KCL 20 MEQ/L 1,000 ML IV SCH ×3 (04:16→18:36)
[2021-11-30 05:58] LABS: HEMATOCRIT 22 % (40-54); HEMOGLOBIN 7.3 g/dL (13.3-17.7); MEAN CORPUSCULAR HEMOGLOBIN 33 pg (25-34); MEAN CORPUSCULAR HGB CONC 33 g/dL (32-36); MEAN CORPUSCULAR VOLUME 102 fL (80-99); MEAN PLATELET VOLUME 9.9 fL (9.0-12.2); PLATELET COUNT 181 10^3/uL (130-400); WHITE BLOOD COUNT 4.7 10^3/uL (4.3-11.0)
[2021-11-30 06:16] LABS: CALCIUM 8.6 MG/DL (8.5-10.1); CREATININE SERUM 0.86 MG/DL (0.60-1.30); POTASSIUM 4.2 MMOL/L (3.6-5.0)
--- NOTE | 2021-11-30 07:20 | Progress Note - Surgery ---
TAYLOR MULTANI 11/30/21 0719: Subjective Date Seen by a Provider: Nov 30, 2021 Time Seen by a Provider: 06:42 Subjective/Events-last exam Pt reports that he is still having some abdominal pain. States that the pain is about the same as yesterday. Rates it as a 4/10 and it is a dull, constant pain. Denies any nausea or vomiting. No BMs in the last day. Has been having episodes of flatus. Drinking fluids w/o issue. Denies any dizziness when he gets up out of bed or muscle weakness. Review of Systems General: No Chills, No Other (fever) HEENT: No Head Aches, No Visual Changes Pulmonary: No Dyspnea, No Cough Cardiovascular: No: Chest Pain, Palpitations Gastrointestinal: Abdominal Pain; No: Nausea, Vomiting Musculoskeletal: No: shoulder pain, back pain Neurological: No: Weakness, Numbness Objective Exam Vital Signs Date Time Temp Pulse Resp B/P (MAP) Pulse Ox O2 Delivery O2 Flow Rate FiO2 11/30/21 04:00 36.0 89 18 146/72 (96) 97 Room Air 11/30/21 02:00 37.8 11/30/21 01:30 37.8 11/30/21 00:00 37.8 84 17 145/76 (99) 99 Room Air 11/29/21 23:29 37.7 11/29/21 22:59 37.7 11/29/21 21:14 37.7 11/29/21 20:44 37.7 11/29/21 19:40 Room Air 11/29/21 19:37 37.7 105 18 157/84 (108) 100 Room Air 11/29/21 16:00 37.0 83 18 131/65 (87) 99 Room Air 11/29/21 12:00 35.9 83 18 123/71 (88) 99 Room Air 11/29/21 08:00 Room Air 11/29/21 08:00 36.1 101 18 145/80 (101) 99 Room Air I & O 11/30/21 07:00 Intake Total 2522 ml Balance 2522 ml Capillary Refill : Less Than 3 Seconds General Appearance: No Apparent Distress, WD/WN HEENT: PERRL/EOMI; No Photophobia Neck: Non Tender, Supple Respiratory: Lungs Clear, Normal Breath Sounds, No Accessory Muscle Use, No Respiratory Distress Cardiovascular: Regular Rate, Rhythm, No JVD, No Murmur, Normal Peripheral Pul ses Peripheral Pulses: 2+ Radial Pulses (R), 2+ Radial Pulses (L) Gastrointestinal: soft, tenderness (minimal in LUQ, RUQ, and RLQ) Extremity: Normal Capillary Refill, Normal Inspection, Non Tender, No Calf Tenderness, No Pedal Edema Neurologic/Psychiatric: Alert, Oriented x3, Normal Mood/Affect Skin: Normal Color, Warm/Dry, Tattoos/Piercings Lymphatic: No Adenopathy Results Lab Laboratory Tests 11/29/21 09:57: White Blood Count 5.9, Red Blood Count 2.27L, Hemoglobin 7.6L, Hematocrit 23L, Mean Corpuscular Volume 101H, Mean Corpuscular Hemoglobin 34, Mean Corpuscular Hemoglobin Concent 33, Red Cell Distribution Width 15.0H, Platelet Count 186, Mean Platelet Volume 10.3, Sodium Level 139, Potassium Level 4.3, Chloride Level 107, Carbon Dioxide Level 22, Anion Gap 10, Blood Urea Nitrogen 12, Creatinine 0.81, Estimat Glomerular Filtration Rate 120, BUN/Creatinine Ratio 15, Glucose Level 115H, Calcium Level 8.8 11/30/21 05:35: White Blood Count 4.7, Red Blood Count 2.19L, Hemoglobin 7.3L, Hematocrit 22L, Mean Corpuscular Volume 102H, Mean Corpuscular Hemoglobin 33, Mean Corpuscular Hemoglobin Concent 33, Red Cell Distribution Width 14.6H, Platelet Count 181, Mean Platelet Volume 9.9, Sodium Level 139, Potassium Level 4.2, Chloride Level 109H, Carbon Dioxide Level 22, Anion Gap 8, Blood Urea Nitrogen 7, Creatinine 0.86, Estimat Glomerular Filtration Rate 118, BUN/Creatinine Ratio 8, Glucose Level 105, Calcium Level 8.6 Assessment/Plan Assessment/Plan Assessment/Plan Upper GI bleed-hematemesis/Coffee ground emesis linear esophageal ulceration Melena Alcohol abuse anemia Plan EGD done 11/28 showed a clotted esophageal linear ulcer no active bleeding Continue pantoprazole, and Zofran. Monitor for resumption of vomiting or melena Repeated CBC and BMP this morning, Hgb dropped from 7.6 yesterday to 7.3 today. Continue to monitor Hgb in case of need for transfusion, blood typing has been done Tolerating clear liquids well Continue alcohol withdrawal protocol Continue IV fluids ALEIDA FERRELL DO 11/30/21 1156: Subjective Subjective/Events-last exam Still with some epigastric abdominal pain. Tolerating clears. No more Hematemesis. No nausea or vomiting at this time. Hgb minimal drop. Denies fever sweats chills shortness of breath or chest pain. Objective Exam General Appearance: No Apparent Distress, WD/WN HEENT: PERRL/EOMI, Normal ENT Inspection Neck: Non Tender, Supple Respiratory: Chest Non Tender, No Accessory Muscle Use, No Respiratory Distress Cardiovascular: Regular Rate, Rhythm, No JVD Gastrointestinal: soft, tenderness (minimal epigastric) Extremity: Normal Capillary Refill, Normal Inspection, Non Tender, No Calf Tenderness Neurologic/Psychiatric: Alert, Oriented x3, Normal Mood/Affect Skin: Normal Color, Warm/Dry Lymphatic: No Adenopathy Assessment/Plan Assessment/Plan Assessment/Plan Upper GI bleed-hematemesis/Coffee ground emesis linear esophageal ulceration Melena Alcohol abuse anemia Plan EGD done 11/28 showed a clotted esophageal linear ulcer no active bleeding Continue pantoprazole, and Zofran. Monitor for resumption of vomiting or melena Repeated CBC and BMP this morning, Hgb dropped from 7.6 yesterday to 7.3 today. Continue to monitor Hgb in case of need for transfusion, blood typing has been done Tolerating clear liquids well Continue alcohol withdrawal protocol Continue IV fluids If stable tomorrow will advance diet. Supervisory-Addendum Brief Verification & Attestation Participated in pt care: history, MDM, physical Personally performed: exam, history, MDM, supervision of care Care discussed with: Medical Student Procedures: n/a Results interpretation: Verified all documentation Verification and Attestation of Medical Student E/M Service A medical student performed and documented this service in my presence. I reviewed and verified all information documented by the medical student and made modifications to such information, when appropriate. I personally performed the physical exam and medical decision making. Aleida Ferrell, Nov 30, 2021,11:55 TAYLOR MULTANI Nov 30, 2021 07:19 ALEIDA FERRELL DO Nov 30, 2021 11:56
[2021-11-30] MEDS: NICOTINE 21 MG (NICODERM) PATCH TD SCH ×2 (07:46→10:31)
[2021-11-30] MEDS: PANTOPRAZOLE 40 MG (PROTONIX) VIAL IV SCH ×2 (09:05→20:17)
[2021-11-30] MEDS: THIAMINE INJECTION 100 MG, FOLIC ACID INJECTION 1 MG, MAGNESIUM SULFATE 2 GM, VITAMIN M... IV SCH ×5 (09:06)
[2021-12-01] MEDS: fentaNYL INJ 100 MCG/2 ML AMP IVP PRN ×10 (02:19→22:45)
[2021-12-01] MEDS: D5 1/2 NS W/KCL 20 MEQ/L 1,000 ML IV SCH ×4 (02:41→23:08)
[2021-12-01 04:10] VITALS: BP 150/91
[2021-12-01 06:06] LABS: HEMATOCRIT 23 % (40-54); HEMOGLOBIN 7.3 g/dL (13.3-17.7); MEAN CORPUSCULAR HEMOGLOBIN 33 pg (25-34); MEAN CORPUSCULAR HGB CONC 32 g/dL (32-36); MEAN CORPUSCULAR VOLUME 102 fL (80-99); MEAN PLATELET VOLUME 9.8 fL (9.0-12.2); PLATELET COUNT 216 10^3/uL (130-400); WHITE BLOOD COUNT 6.2 10^3/uL (4.3-11.0)
--- NOTE | 2021-12-01 06:58 | Progress Note - Surgery ---
TAYLOR MULTANI 12/01/21 0658: Subjective Date Seen by a Provider: Dec 01, 2021 Time Seen by a Provider: 06:29 Subjective/Events-last exam Pt reports that he was having epigastric pain last night. States it is a "tight, cramp-like pain". Rates the pain as a 7-8/10 at its worst. He is unsure if he w ants to try eating solids today due to his increased abdominal pain. Tolerating clear liquids well. Reports that he did have a small stool yesterday that did not appear melenic. Denies having any other concerns when asked. Review of Systems General: No Chills, No Other (fever) HEENT: No Head Aches, No Visual Changes Pulmonary: No Dyspnea, No Cough Cardiovascular: No: Chest Pain, Palpitations Gastrointestinal: Abdominal Pain; No: Nausea, Vomiting Genitourinary: No Dysuria, No Frequency Neurological: No: Weakness, Numbness Objective Exam Vital Signs Date Time Temp Pulse Resp B/P (MAP) Pulse Ox O2 Delivery O2 Flow Rate FiO2 12/01/21 04:10 37.7 94 18 150/91 (110) 97 Room Air 11/30/21 23:25 37.9 88 18 143/84 (103) 95 Room Air 11/30/21 20:27 36.9 73 16 121/50 (73) 99 Room Air 11/30/21 20:10 Room Air 11/30/21 16:00 37.5 92 16 162/95 (117) 98 Room Air 11/30/21 11:10 37.7 85 18 138/91 (107) 99 Room Air 11/30/21 08:00 Room Air 11/30/21 07:49 36.4 83 18 136/66 (89) 98 Room Air I & O 12/01/21 07:00 Intake Total 5680 ml Balance 5680 ml Capillary Refill : Less Than 3 Seconds General Appearance: No Apparent Distress, WD/WN HEENT: PERRL/EOMI; No Photophobia Neck: Non Tender, Supple Respiratory: Chest Non Tender, Normal Breath Sounds, No Accessory Muscle Use, No Respiratory Distress Cardiovascular: Regular Rate, Rhythm, No JVD, No Murmur, Normal Peripheral Pulses Peripheral Pulses: 2+ Radial Pulses (R), 2+ Radial Pulses (L) Gastrointestinal: soft, tenderness (minimal epigastric and RUQ) Extremity: Normal Capillary Refill, Normal Inspection, Non Tender, No Calf Tenderness, No Pedal Edema Neurologic/Psychiatric: Alert, Oriented x3, Normal Mood/Affect Skin: Normal Color, Warm/Dry Lymphatic: No Adenopathy Results Lab Laboratory Tests 12/01/21 05:51: White Blood Count 6.2, Red Blood Count 2.21L, Hemoglobin 7.3L, Hematocrit 23L, Mean Corpuscular Volume 102H, Mean Corpuscular Hemoglobin 33, Mean Corpuscular Hemoglobin Concent 32, Red Cell Distribution Width 14.7H, Platelet Count 216, Me an Platelet Volume 9.8 Assessment/Plan Assessment/Plan Assessment/Plan Upper GI bleed-hematemesis/Coffee ground emesis linear esophageal ulceration Melena-improved Alcohol abuse anemia Plan EGD done 11/28 showed a clotted esophageal linear ulcer no active bleeding Continue pantoprazole, and Zofran. Monitor for resumption of vomiting or melena Repeated CBC and BMP this morning, Hgb is the same today as it was yesterday at 7.3. Continue to monitor Hgb in case of need for transfusion, blood typing has been done Tolerating clear liquids well, since Hgb is stable diet can be advanced Continue alcohol withdrawal protocol Continue IV fluids ALEIDA FERRELL DO 12/01/218: Subjective Subjective/Events-last exam still with epigastric pain. varies intensity. tolerating clears. No more manohar temesis. Hgb stable. Denies fever sweats chills shortness of breath or chest pain. Objective Exam General Appearance: No Apparent Distress, WD/WN HEENT: PERRL/EOMI, Normal ENT Inspection Neck: Normal Inspection, Non Tender, Supple Respiratory: Chest Non Tender, No Accessory Muscle Use, No Respiratory Distress Cardiovascular: Regular Rate, Rhythm, No JVD Gastrointestinal: soft, tenderness (minimal epigastric ) Extremity: Normal Capillary Refill, Normal Inspection, Non Tender, No Calf Tenderness Neurologic/Psychiatric: Alert, Oriented x3, Normal Mood/Affect Skin: Normal Color, Warm/Dry Lymphatic: No Adenopathy Assessment/Plan Assessment/Plan Assessment/Plan Upper GI bleed-hematemesis/Coffee ground emesis linear esophageal ulceration Melena-improved Alcohol abuse anemia Plan EGD done 11/28 showed a clotted esophageal linear ulcer no active bleeding Continue pantoprazole, carafate and Zofran. Monitor for resumption of vomiting or melena Repeated CBC and BMP this morning, Hgb is the same today as it was yesterday at 7.3. Continue to monitor Hgb in case of need for transfusion, blood typing has been done Tolerating clear liquids well, since Hgb is stable diet can be advanced Continue alcohol withdrawal protocol Continue IV fluids Home soon Supervisory-Addendum Brief Verification & Attestation Participated in pt care: history, MDM, physical Personally performed: exam, history, MDM, supervision of care Care discussed with: Medical Student Procedures: n/a Results interpretation: Verified all documentation Verification and Attestation of Medical Student E/M Service A medical student performed and documented this service in my presence. I reviewed and verified all information documented by the medical student and made modifications to such information, when appropriate. I personally performed the physical exam and medical decision making. Aleida Ferrell, Dec 01, 2021,19:07 TAYLOR MULTANI Dec 01, 2021 06:58 ALEIDA FERRELL DO Dec 01, 2021 19:08
[2021-12-01 07:33] VITALS: BP 138/92
[2021-12-01] MEDS: PANTOPRAZOLE 40 MG (PROTONIX) VIAL IV SCH ×2 (08:57→20:24)
[2021-12-01] MEDS: NICOTINE 21 MG (NICODERM) PATCH TD SCH (09:00)
[2021-12-01 11:27] VITALS: BP 136/81
[2021-12-01 15:48] VITALS: BP 164/95
[2021-12-01] MEDS ORDERED: SUCRALFATE 1 GM (CARAFATE) TAB PO SCH (16:00)
[2021-12-01 19:53] VITALS: BP 144/86
[2021-12-01] MEDS: SUCRALFATE 1 GM (CARAFATE) TAB PO SCH (20:24)
[2021-12-01 23:42] VITALS: BP 127/79
[2021-12-02] MEDS: fentaNYL INJ 100 MCG/2 ML AMP IVP PRN ×3 (01:31→10:46)
[2021-12-02 04:30] VITALS: BP 142/67
[2021-12-02] MEDS: SUCRALFATE 1 GM (CARAFATE) TAB PO SCH ×2 (05:25→10:46)
[2021-12-02 05:38] LABS: HEMATOCRIT 23 % (40-54); HEMOGLOBIN 7.5 g/dL (13.3-17.7); MEAN CORPUSCULAR HEMOGLOBIN 33 pg (25-34); MEAN CORPUSCULAR HGB CONC 33 g/dL (32-36); MEAN CORPUSCULAR VOLUME 102 fL (80-99); MEAN PLATELET VOLUME 9.9 fL (9.0-12.2); PLATELET COUNT 248 10^3/uL (130-400); WHITE BLOOD COUNT 5.3 10^3/uL (4.3-11.0)
[2021-12-02] MEDS: D5 1/2 NS W/KCL 20 MEQ/L 1,000 ML IV SCH (05:52)
[2021-12-02 05:55] LABS: CALCIUM 9.1 MG/DL (8.5-10.1); CREATININE SERUM 0.95 MG/DL (0.60-1.30); POTASSIUM 3.9 MMOL/L (3.6-5.0)
--- NOTE | 2021-12-02 06:59 | Progress Note - Surgery ---
TAYLOR MULTANI 12/02/21 0659: Subjective Date Seen by a Provider: Dec 02, 2021 Time Seen by a Provider: 06:31 Subjective/Events-last exam Pt reports that his epigastric pain is improved from yesterday. Says that his pain is around a 5-6/10. He is on a soft foods diet. States that he took about 5-6 bites of his dinner and then developed increased abdominal pain about 15 minutes later. Rates that pain after eating as a 7/10. Denies having any recent nausea or vomiting. He has been passing flatus. No recent bowel movements. Review of Systems General: No Chills, No Night Sweats HEENT: No Head Aches, No Visual Changes Pulmonary: No Dyspnea, No Cough Cardiovascular: No: Chest Pain, Palpitations Gastrointestinal: Abdominal Pain; No: Nausea, Vomiting Musculoskeletal: No: neck pain, arm pain, back pain Neurological: No: Weakness, Numbness Objective Exam Vital Signs Date Time Temp Pulse Resp B/P (MAP) Pulse Ox O2 Delivery O2 Flow Rate FiO2 12/02/21 04:30 36.8 80 18 142/67 (92) 100 Room Air 12/02/21 02:00 37.9 12/02/21 01:31 37.9 12/01/21 23:42 37.9 77 20 127/79 (95) 99 Room Air 12/01/21 23:15 37.2 12/01/21 22:45 37.2 12/01/21 20:57 37.2 12/01/21 19:53 37.2 96 20 144/86 (105) 100 Room Air 12/01/21 19:20 Room Air 12/01/21 15:48 36.1 92 18 164/95 (118) 100 Room Air 12/01/21 11:27 36.8 81 18 136/81 (99) 100 Room Air 12/01/21 08:00 Room Air 12/01/21 07:33 36.2 83 20 138/92 (107) 100 Room Air I & O 12/02/21 07:00 Intake Total 5160 ml Balance 5160 ml Capillary Refill : Less Than 3 Seconds General Appearance: No Apparent Distress, WD/WN HEENT: PERRL/EOMI; No Photophobia Neck: Normal Inspection, Non Tender, Supple Respiratory: Chest Non Tender, Normal Breath Sounds, No Accessory Muscle Use, No Respiratory Distress Cardiovascular: Regular Rate, Rhythm, No JVD, No Murmur, Normal Peripheral Pulses Peripheral Pulses: 2+ Radial Pulses (R), 2+ Radial Pulses (L) Gastrointestinal: soft, tenderness (minimal epigastric ) Extremity: Normal Capillary Refill, Normal Inspection, Non Tender, No Calf Tenderness Neurologic/Psychiatric: Alert, Oriented x3, Normal Mood/Affect Skin: Normal Color, Warm/Dry Lymphatic: No Adenopathy Results Lab Laboratory Tests 12/02/21 05:13: White Blood Count 5.3, Red Blood Count 2.26L, Hemoglobin 7.5L, Hematocrit 23L, Mean Corpuscular Volume 102H, Mean Corpuscular Hemoglobin 33, Mean Corpuscular Hemoglobin Concent 33, Red Cell Distribution Width 14.7H, Platelet Count 248, Mean Platelet Volume 9.9, Sodium Level 139, Potassium Level 3.9, Chloride Level 108H, Carbon Dioxide Level 21, Anion Gap 10, Blood Urea Nitrogen 4L, Creatinine 0.95, Estimat Glomerular Filtration Rate 109, BUN/Creatinine Ratio 4, Glucose Level 109H, Calcium Level 9.1 Assessment/Plan Assessment/Plan Assessment/Plan Upper GI bleed-hematemesis/Coffee ground emesis linear esophageal ulceration Melena-improved Alcohol abuse anemia Plan EGD done 11/28 showed a clotted esophageal linear ulcer no active bleeding Continue pantoprazole, carafate and Zofran. Consider starting oral pain medication. Monitor for resumption of vomiting or melena Repeated CBC and BMP this morning, Hgb increased to 7.5 today, yesterday at 7.3. Continue to monitor Hgb in case of need for transfusion, blood typing has been done Continue softs diet, he is tolerating liquids well Continue alcohol withdrawal protocol Continue IV fluids Home soon ALEIDA FERRELL DO 12/02/21 1228: Subjective Subjective/Events-last exam Patient feeling better. Tolerating diet. Hgb stable. Denies n/v fever sweats chills shortness of breath or chest pain. Wanting to go home Objective Exam General Appearance: No Apparent Distress, WD/WN HEENT: Normal ENT Inspection Neck: Normal Inspection, Non Tender Respiratory: Chest Non Tender, No Accessory Muscle Use, No Respiratory Distress Cardiovascular: Regular Rate, Rhythm, No JVD Gastrointestinal: soft, tenderness (very minimal) Extremity: Non Tender, No Calf Tenderness Neurologic/Psychiatric: Alert, Oriented x3, Normal Mood/Affect Skin: Normal Color, Warm/Dry Lymphatic: No Adenopathy Assessment/Plan Assessment/Plan Assessment/Plan Upper GI bleed-hematemesis/Coffee ground emesis linear esophageal ulceration Melena-improved Alcohol abuse anemia Plan EGD done 11/28 showed a clotted esophageal linear ulcer no active bleeding pantoprazole, carafate and Zofran. Continue softs diet, he is tolerating liquids well Discussed EtOH cessation Would repeat EGD in approximately 6 weeks. Supervisory-Addendum Brief Verification & Attestation Participated in pt care: history, MDM, physical Personally performed: exam, history, MDM, supervision of care Care discussed with: Medical Student Procedures: n/a Results interpretation: Verified all documentation Verification and Attestation of Medical Student E/M Service A medical student performed and documented this service in my presence. I reviewed and verified all information documented by the medical student and made modifications to such information, when appropriate. I personally performed the physical exam and medical decision making. Aleida Ferrell, Dec 02, 2021,12:29 TAYLOR MULTANI Dec 02, 2021 06:59 ALEIDA FERRELL DO Dec 02, 2021 12:28
[2021-12-02 07:18] VITALS: BP 146/93
[2021-12-02] MEDS: PANTOPRAZOLE 40 MG (PROTONIX) VIAL IV SCH (08:10)
[2021-12-02] MEDS: NICOTINE 21 MG (NICODERM) PATCH TD SCH (08:11)
[2021-12-02] MEDS ORDERED: SUCR1TAB36 PO (08:40)
[2021-12-02] MEDS ORDERED: PANT40TA2 PO (08:40)
--- NOTE | 2021-12-02 08:41 | Discharge Inst-Simple/Standard ---
Discharge Inst-Standard Discharge Medications New, Converted or Re-Newed RX: Transmitted to Pharmacy Patient Instructions/Follow Up Plan of Care/Instructions/FU: 2 weeks Mariaelena Activity as Tolerated: Yes Discharge Diet: Soft Diet ALEIDA BAH DO Dec 02, 2021 08:41
[2021-12-02 11:08] VITALS: BP 146/93
== END 2021-12-02 08:39 | disposition home or self-care (01) ==
LOC: EDUNIT# 18:23 → ER 18:25 → UNDOADMOB 20:31 → 4TH 20:31 → SDC 22:04 → 4TH 11-28 10:18 → UNDODISOB 12-02 12:10
PROVIDERS: ADMIT Surgery; ATTEND Surgery
DX: K22.11 Ulcer of esophagus with bleeding (principal); K44.9 Diaphragmatic hernia without obstruction or gangrene; K22.89 Other specified disease of esophagus; F17.210 Nicotine dependence, cigarettes, uncomplicated; F10.10 Alcohol abuse, uncomplicated; K92.0 Hematemesis; D50.0 Iron deficiency anemia secondary to blood loss (chronic); M94.0 Chondrocostal junction syndrome [Tietze]; Z79.899 Other long term (current) drug therapy
CPT/HCPCS: 43235; 80048 ×4; 80053; 82274; 83690; 83735; 85007; 85014 ×2; 85018 ×2; 85025; 85027 ×5; 86850; 86900; 86901; 87636; 96361; 96365; 96375; 99284; G0378; G0480; 36415; 80320

== ENCOUNTER 2023-02-13 18:30 | Emergency (ER) | payer SELFPAY ==
[~2023-02-13] VITALS: Ht 185 cm; Wt 90.7 kg
[~2023-02-13 18:30] MED LIST changes: +PANT40TA2 PO; +SUCR1TAB36 PO
[2023-02-13 18:46] VITALS: BP 168/131
[2023-02-13] MEDS ORDERED: CLINDAMYCIN 150 MG (CLEOCIN) CAP PO STA (18:53)
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
[2023-02-13] MEDS ORDERED: CLIN-144 PO (19:02)
[2023-02-13] MEDS ORDERED: ACHD5005 PO (19:03)
== END 2023-02-13 19:20 | disposition home or self-care (01) ==
LOC: EDUNIT# 18:30 → ER 18:32
DX: K04.7 Periapical abscess without sinus (principal); F17.210 Nicotine dependence, cigarettes, uncomplicated; Z28.310 Unvaccinated for COVID-19
CPT/HCPCS: 99283

== ENCOUNTER 2023-06-12 00:59 | Emergency (ER) | payer SELFPAY ==
[~2023-06-12] VITALS: Ht 185.5 cm; Wt 90.7 kg
[~2023-06-12 00:59] MED LIST changes: +ACHD5005 PO; +CLIN-144 PO
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
[2023-06-12] MEDS ORDERED: Tetanus/Diphtheria/Pertussis (Acell) ADULT Vaccine 0.5 ML IM ONE (01:15)
[2023-06-12] MEDS ORDERED: LIDOCAINE 2% w/EPI 1:100,000 20 ML VIAL INJ ONE (01:15)
[2023-06-12] MEDS ORDERED: LIDOCAINE/EPI 1%-1:200,000 (XYLOCAINE) 30 ML VIAL ONE (01:20)
[2023-06-12] MEDS ORDERED: LIDOCAINE 2% w/EPI 1:200,000 20 ML VIAL ONE (01:20)
[2023-06-12 02:16] VITALS: BP 169/92
== END 2023-06-12 02:16 | disposition home or self-care (01) ==
LOC: EDUNIT# 00:59 → ER 01:01
DX: S51.812A Laceration without foreign body of left forearm, initial encounter (principal); Z23 Encounter for immunization; Z28.310 Unvaccinated for COVID-19; W26.8XXA Contact with other sharp object(s), not elsewhere classified, initial encounter
CPT/HCPCS: 12032; 90471; 90715